=== PATIENT | male | born 2000 | race Caucasian/White ===

== ENCOUNTER 2020-07-06 21:53 | Emergency (ER) | payer MEDICAID, SELFPAY ==
[2020-07-06 21:57] VITALS: BP 135/68; PULSE 74; RESP 16; TEMP 37.1; O2SAT 97
--- NOTE | 2020-07-06 22:17 | ED.GENADUL_ITS ---
Discharge Plan Disposition Patient Disposition: HOME Condition: Good Discharge Details Clinical Impression: Neuritis of right ulnar nerve Primary Care Provider: Puneet Pope ED Provider: Shiloh Mcdonough Home Meds and New Rx's Prescriptions: No Action No Known Home Meds RF: 0 Discharge Instructions Instructions: Peripheral Neuropathy (ED) Additional Instructions: Your exam is most consistent with ulnar neuritis. Use Joaquín wrap at night to help keep your arm slightly straighter. Try to avoid repetitive motions, in particular please cut back on your lifting as this may be exacerbating the issue. Only ice the area. Ibuprofen to help with comfort and swelling. You may also augment this with Tylenol as needed. If this has not improved in 2 weeks, please follow-up with your primary care. If develop fever/chills, redness, increased pain, worsening of your sensory changes or other new/worsening symptoms to seek care urgently once again. Referrals: Puneet Pope MD [Primary Care Provider] - Medical Decision Making Patient is a pleasant 20-year-old [id number] male presenting today with chief complaint of right elbow pain. He reports that he began having medial right elbow pain intermittently approximately 4 days ago after helping his sister move. States that her pain is worsened with flexion of the elbow and can radiate into the ring and pinky finger and caused tingling in these areas. 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 He states that these are worse at night when he awakes after having his arm in a flexed position. At times. States that it improves when he bends his elbow. Has not had fevers or chills. Denies any trauma. Has not taken anything for his discomfort. On exam, patient appears nontoxic. He has negative Spurling's exam. He has pain elicited with compression of the ulnar nerve at the cubital tunnel. There is also a sense of tingling into the fourth and fifth digits. He has full range of motion of his wrist and fingers. No neurological deficit was noted with strength testing or sensation testing. Two-point discrimination is intact. Patient's history and exam is most distant with ulnar neuritis. Plan to place patient in Joaquín wrap. Educated on how to place this. He will use this at night and when performing activities that may elicit his discomfort. I advised that he hold off any weight lifting for at least the next week and symptoms have completely resolved. I advised ibuprofen to help with swelling and discomfort. Encourage that he ice the area. Advise follow-up with primary care in 2 weeks if pain is not improved. Return precautions were given. All questions and concerns were addressed and is in agreement with plan. HPI General Mode of arrival: ambulatory . Date/Time Provider Initiated Documentation: 07/06/20 21:55 . Limitations to Documentation: no limitations . Information obtained by: patient and RN notes reviewed . History of Present Illness 20 year old M presents to the emergency department with the chief complaint of right ring and pinky finger tingling, elbow pain, described as moderate, with intensity rated at 7. Quality is described as aching, and is localized to the right and upper extremity. Patient distal (into the ring and pinky finger). Patient started experiencing this day(s) (4) and it has been constant. Movement improves symptom(s), Rest worsens symptoms (keeping arm straight improves symptoms) . Patient notes no other symptoms.. Patient did receive the following treatments prior to arrival, none Related Data Home Medications Medication Instructions Recorded Confirmed Unknown [No Known Home Meds] 07/06/20 07/06/20 Allergies Allergy/AdvReac Type Severity Reaction Status Date / Time No Known Allergies Allergy Unverified 01/17/16 11:01 General Stated Complaint: Orthopedic ELIZABETH: 4 Review of Systems Constitutional Constitutional: Reports as per HPI, Denies chills, Denies fever(s), Denies headache(s) and Denies weakness ENT Ears, Nose, Mouth, and Throat: Denies headache(s) Cardiovascular Cardiovascular: Reports as per HPI Respiratory Respiratory: Reports as per HPI and Denies cough Musculoskeletal Musculoskeletal: Reports as per HPI and Reports tingling Integumentary/Breasts Skin/Breast: Reports as per HPI, Denies rash and Denies wounds Neurologic Neurologic: Reports as per HPI, Denies headache(s), Reports tingling and Denies weakness [facility] Medical History Acne Family History Mother Mental disorder Father Alcohol abuse HIV antibody positive Social History Smoking/Tobacco Use Status: Never Smoking risk assessment performed?: Yes Alcohol Intake: never Drug use: Rarely Substance use type: does not use Do you feel safe at home: Yes Do you feel safe in your relationship?: Yes Exam Const General: cooperative, healthy appearing, comfortable, no acute distress, well developed and well groomed Nutritional Appearance: average body habitus and well nourished Orientation: alert and awake Neck Neck: normal visual inspection, full ROM and other (Negative Spurling's exam, no midline tenderness) Resp Effort & Inspection: normal respiratory effort, able to speak in complete sentences and no respiratory distress Cardio Rate: regular rate Rhythm: regular rhythm Skin General skin exam: no rashes or lesions noted Lesions: no lesions Rashes: no rashes Trauma: no lacerations or abrasions Neuro General: patient alert and patient awake Cognition: normal cognition Speech: speech normal Gait: normal gait Motor: muscle tone normal throughout, strength 5/5 throughout, no movement abnormalities noted and no fasciculations Sensory Exam: no sensory deficits noted and normal double simultaneous stimulation Extrem Right upper extremity: normal to inspection, full ROM, normal capillary refill, no joint enlargement, shoulder/upper arm Details: normal to inspection, elbow/forearm Details: normal to inspection, tenderness Location: of the medial epicondyle (over ulnar nerve, compression worsened symptoms), normal ROM and distal pulses intact; no swelling, no unusual warmth, no lacerations, no ecchymosis, no crepitus and no deformity, wrist Details: normal to inspection, normal ROM and radial pulse present; no tenderness and no swelling and hand Details: normal to inspection, normal capillary refill, neuromotor exam normal, neurosensory exam normal, tendon exam normal, vascular exam Details: radial pul se present and normal capillary refill, normal ROM of fingers and no swelling; no tenderness, no unusual warmth, no swelling, no ecchymosis and no crepitus; no cyanosis and no edema Psych Appearance: grossly normal and well kempt Mental Status: mental status grossly normal Speech and Movement: speech and movement normal Course Vital Signs Vital signs: Vital Signs Temperature 37.1 C 07/06/20 21:57 Pulse 74 07/06/20 21:57 Respiratory Rate 16 07/06/20 21:57 Blood Pressure 135/68 07/06/20 21:57 Pulse Oximetry 97 07/06/20 21:57 Temperature 37.1 C 07/06/20 21:57 Temperature Source Skin 07/06/20 21:57 Pulse 74 07/06/20 21:57 Respiratory Rate 16 07/06/20 21:57 Respiratory Effort 07/06/20 22:02 Blood Pressure 135/68 07/06/20 21:57 Blood Pressure Position Sitting 07/06/20 21:57 Pulse Oximetry 97 07/06/20 21:57 Oxygen Delivery Method Room Air 07/06/20 21:57 Oxygen Flow Rate 0 07/06/20 21:57 Pain Level 7 07/06/20 21:57
--- NOTE | 2020-07-06 22:25 | NUR.NOTE ---
Joaquín wrap applied by RENETTA Mcdonough. Pt educated on use.
== END 2020-07-06 22:25 | disposition home or self-care (01) ==
PROVIDERS: Emergency Provider Physician Assistant; PCP Pediatrics
DX: G56.21 Lesion of ulnar nerve, right upper limb (principal)
CPT/HCPCS: 99283; 99282